=== PATIENT | male | born 1990 | race Caucasian/White ===

== ENCOUNTER 2020-07-22 10:00 | Outpatient (RCR) | payer OTHER, SELFPAY ==
--- NOTE | 2020-08-10 10:20 | MHC.PT.DC ---
[facility] [place] [facility] [place] Office [place] Office [address] [place] [address] [phone] F: [phone] F: [phone] F: [phone] F: [phone] Physical Therapy Discharge Report Diagnosis: LUMBAR SPONDYLOSIS Date of Surgery: Date of Evaluation: 05/05/20 Date of Discharge: 08/10/20 Treatments to Date: 16 Cancellations to Date: 3 No Shows to Date: 0 Discharge Status: Independent with HEP Recommend MD Follow-up Discharge Summary: RUBEN HAS NOT PROGRESSED ANTICIPATED WITH THERAPEUTIC INTERVENTIONS. DUE TO HIGH PAIN LEVELS AND LE SYMPTOMS WE RECOMMEND HE F/U WITH [facility]RE[facility] AND HELD THEREX TODAY. REVIEWED AN ENCOURGED APPROPRIATE SITTING POSTURES, TOWEL ROLL USE, LUMBAR EXTENSION WORK Electronically signed by: ALFREDO URENA PT, DPT Please sign and return to therapist. Thank you for your referral.
--- NOTE | 2020-08-18 12:22 | MHC.PT.DC ---
[facility] [place] Office [place] Office [place] Office [address] [place] [address] [phone] F: [phone] F: [phone] F: [phone] F: [phone] Physical Therapy Discharge Report Diagnosis: LUMBAR SPONDYLOSIS Date of Surgery: Date of Evaluation: 05/05/20 Date of Discharge: 08/10/20 Treatments to Date: 16 Cancellations to Date: 3 No Shows to Date: 0 Discharge Status: Independent with HEP Recommend MD Follow-up Discharge Summary: RUBEN HAS NOT PROGRESSED ANTICIPATED WITH THERAPEUTIC INTERVENTIONS. DUE TO HIGH PAIN LEVELS AND LE SYMPTOMS WE RECOMMEND HE F/U WITH MIRELA AND HELD THEREX TODAY. REVIEWED AN ENCOURGED APPROPRIATE SITTING POSTURES, TOWEL ROLL USE, LUMBAR EXTENSION WORK Electronically signed by: ALFREDO URENA PT, DPT Please sign and return to therapist. Thank you for your referral.
== END 2020-08-10 10:37 | disposition other institution (70) ==
LOC: HO.PT 10:00
PROVIDERS: PCP Internal Medicine; Visit Provider Anesthesiology
DX: M47.816 Spondylosis without myelopathy or radiculopathy, lumbar region (principal)
CPT/HCPCS: 97012; 97014